=== PATIENT | male | born 1990 | race Two or more races ===

== ENCOUNTER 2017-08-14 12:40 | Emergency (ER) | payer MEDICAID ==
[~2017-08-14] VITALS: Ht 180.3 cm; Wt 93.0 kg
[2017-08-14 14:02] VITALS: BP 142/82
[2017-08-14] MEDS ORDERED: PENICILLIN G BENZ 1200000 UNITS/2 ML SYRG IM ONE (14:30)
[2017-08-14] MEDS ORDERED: AZITHROMYCIN 250 MG TAB PO ONE (14:30)
[2017-08-14] MEDS ORDERED: cefTRIAXone SODIUM 250 MG VL IM ONE (15:00)
== END 2017-08-14 15:07 | disposition home or self-care (01) ==
LOC: ER 12:40
DX: A64 Unspecified sexually transmitted disease (principal); J02.9 Acute pharyngitis, unspecified
CPT/HCPCS: 96372; 99283; J0561; J0696